=== PATIENT | male | born 1990 | race Caucasian/White ===

== ENCOUNTER → 2019-05-03 | Outpatient (CLI) | payer OTHER ==
--- NOTE | 2019-05-03 15:13 | Diagnostic Imaging Report ---
INDICATION: Left shoulder pain. TIME OF EXAM: 02:30 p.m. FINDINGS: Three views of the left shoulder were obtained. Glenohumeral and acromioclavicular alignment is normal. Acromiohumeral space is normal. No fracture or dislocation is seen. IMPRESSION: No acute bony abnormality is detected. Dictated by: Dictated on workstation # [id number]
== END ==
LOC: RAD FS 14:18
PROVIDERS: ATTEND Nurse Practitioner
DX: M25.512 Pain in left shoulder (principal)
CPT/HCPCS: 73030

== ENCOUNTER 2019-09-29 11:59 | Emergency (ER) | payer OTHER ==
[~2019-09-29] VITALS: Ht 177.8 cm; Wt 90.9 kg
[2019-09-29] MEDS ORDERED: predniSONE 20 MG TAB ONE (12:27)
[2019-09-29] MEDS ORDERED: RT-ALBUTEROL/IPRATROPIUM 3 ML (DUONEB) VIAL ONE (12:27)
--- NOTE | 2019-09-29 12:39 | NUR ---
prednisone was not available in 10mg tabs. Pt was given 3 20mg tablets.
[2019-09-29] MEDS ORDERED: RT-ALBUINH IH (12:40)
[2019-09-29] MEDS ORDERED: PRD20T PO (12:40)
--- NOTE | 2019-09-29 12:41 | ED Respiratory ---
General Chief Complaint: Cough/Cold/Flu Symptoms Stated Complaint: COUGH Nursing Triage Note: Patient arrived by private vehicle with chief complaint of fever, cough, chills (flu like symptoms). Pt was sent over from health department to possibly get tested to coronavirus. Pt was seen at Dr. Ivey's office this morning, then was sent to health department and then here by private vehicle. Pt is alert, oriented x 4 and ambulatory. Pt was ambulatory to room 3. Pt stated he has traveled to [facility] last Thursday and Thursday. He was in [place] 3 weeks ago. Pt started having fever, cough, chills on Thursday. Pt stated he is in good shape and is still having a difficulty breathing. Pt stated that he only has pain when breathing (taking a deep breath). Pt stated he has shortness of breath all the time since Thursday. Has not taken anything for fever today. It has been since Thursday that the patient has had vomiting. Source: patient Exam Limitations: no limitations History of Present Illness Date Seen by Provider: Sep 29, 2019 Time Seen by Provider: 12:35 Initial Comments Patient presents by private vehicle after initially going to his PCP this morning who sent him to the health department which then sent him to the emergency room. Patient has had cough and cold symptoms for the past several days with his last fever began yesterday, he states at 100. No fever today, no chills. Describes some chest tightness and wheezing with cough. No known exposure to the coronavirus and no travel outside the country. Patient states that he has traveled to [facility] recently. Allergies and Home Medications Allergies Coded Allergies: No Known Drug Allergies (Unverified , 09/29/19) Home Medications Albuterol Sulfate 1 Puff Puff, 2 PUFF IH Q4H 1 PUFF = 90 MCG Prescribed by: RODRIGUEZ GO on 09/29/19 1240 Prednisone 20 Mg Tab, 40 MG PO DAILY Prescribed by: RODRIGUEZ GO on 09/29/19 1240 Patient Home Medication List Home Medication List Reviewed: Yes Review of Systems Review of Systems Constitutional: see HPI, fever, malaise Respiratory: cough, wheezing Cardiovascular: chest pain (tightness w cough); No palpitations, No syncope Gastrointestinal: No abdominal pain, No loss of appetite, No vomiting Musculoskeletal: No back pain, No joint pain; muscle pain Skin: No change in color, No rash Past Zbgwata-Shzdzr-Xlwgxq Hx Past Med/Social Hx: Reviewed Nursing Past Med/Soc Hx Patient Social History Alcohol Use: Denies Use Recreational Drug Use: No Smoking Status: Current Everyday Smoker Type Used: Smokeless Tobacco 2nd Hand Smoke Exposure: Yes Recent Foreign Travel: No Contact w/Someone Who Travel: No (No idea) Recent Hopitalizations: No Physical Abuse: No Sexual Abuse: No Mistreated: No Fear: No Seasonal Allergies Seasonal Allergies: No Past Medical History Surgeries: Yes Vasectomy Respiratory: No Cardiac: No Neurological: No Genitourinary: No Gastrointestinal: No Musculoskeletal: No Endocrine: No HEENT: No Cancer: No Psychosocial: Yes Anxiety, Depression Integumentary: No Blood Disorders: No Physical Exam Vital Signs - First Documented 09/29/19 09/29/19 12:05 12:54 Temp 37.0 Pulse 82 Resp 16 B/P (MAP) 128/75 (92) Pulse Ox 96 O2 Delivery Room Air Capillary Refill : Less Than 3 Seconds Height: '" Weight: lbs. oz. kg; 28.00 BMI Method: General Appearance: WD/WN, no apparent distress HEENT: normal ENT inspection, TMs normal Neck: non-tender, supple Respiratory: chest non-tender, lungs clear, normal breath sounds, no respiratory distress, no accessory muscle use Cardiovascular: regular rate, rhythm, no edema Gastrointestinal: non tender, soft Skin: normal color, warm/dry Progress/Results/Core Measures Suspected Sepsis Recent Fever Within 48 Hours: Yes Infection Criteria Present: Suspected New Infection New/Unexplained Altered Menta: No Sepsis Screen: No Definite Risk SIRS Temperature: Pulse: 82 Respiratory Rate: Blood Pressure 128 /75 Mean: 92 Results/Orders Micro Results Microbiology 09/29/19 Influenza Types A,B Antigen (INGE) - Final, Complete My Orders Orders - RODRIGUEZ GO DO Influenza A And B Antigens (09/29/19 12:09) Prednisone Tablet (Deltasone Tablet) (09/29/19 12:27) Albuterol/Ipra Inhalation Soln (Duoneb I (09/29/19 12:27) Albuterol/Ipra Inhalation Soln (Duoneb I (09/29/19 12:45) Svn Small Volume Nebulizer (09/29/19 12:36) Prednisone Tablet (Deltasone Tablet) (09/29/19 12:45) Medications Given in ED Current Medications Medications Dose Ordered Sig/Edwige Route Start Time Stop Time Status Last Admin Dose Admin Albuterol/ Ipratropium 3 ml ONCE ONCE INH 09/29/19 12:45 09/29/19 12:46 DC 09/29/19 12:38 3 ML Prednisone 60 mg ONCE ONCE PO 09/29/19 12:45 09/29/19 12:46 DC 09/29/19 12:39 60 MG Vital Signs/I&O 09/29/19 09/29/19 09/29/19 09/29/19 12:05 12:05 12:28 12:54 Temp 37.0 36.8 Pulse 82 87 Resp 16 B/P (MAP) 128/75 (92) 126/72 Pulse Ox 96 87 O2 Delivery Room Air Room Air Room Air Room Air Capillary Refill : Less Than 3 Seconds Blood Pressure Mean: 92 Departure Impression Primary Impression: Bronchitis Disposition: HOME, SELF-CARE Condition: Stable Departure-Patient Inst. Referrals: MARK IVEY MD (PCP/Family) Primary Care Physician Patient Instructions: Acute Bronchitis, Adult (DC) Scripts Albuterol Sulfate (PROAIR HFA) 1 Puff Puff 2 PUFF IH Q4H, #1 PUFF 1 PUFF = 90 MCG Prov: RODRIGUEZ GO DO 09/29/19 Prednisone (Prednisone) 20 Mg Tab 40 MG PO DAILY, #10 TAB 0 Refills Prov: RODRIGUEZ GO DO 09/29/19 RODRIGUEZ GO DO Sep 29, 2019 12:41
[2019-09-29] MEDS ORDERED: RT-ALBUTEROL/IPRATROPIUM 3 ML (DUONEB) VIAL INH ONE (12:45)
[2019-09-29] MEDS ORDERED: predniSONE 10 MG TAB PO ONE (12:45)
[2019-09-29 12:54] VITALS: BP 126/72
--- OUTSIDE RECORDS SUMMARY | 2019-10-01 10:24 | XMS REPORT | Continuity of Care Document ---
Author Organization Unknown Address Unknown Phone Unavailable Allergies Active Description Code Type Severity Reaction Onset Reported/Identified Relationship to Patient Clinical Status Yes No Known Drug Allergies [id number] Drug Allergy Unknown N/A 09/29/2019 Medications There is no data. Problems Date Dx Coded Attending Type Code Diagnosis Diagnosed By 09/29/2019 ANURAG BUTTERFIELD Ot M25.512 PAIN IN LEFT SHOULDER Procedures There is no data. Results Test Result Range Influenza virus A and B antigen detectio n - 09/29/19 12:04 FLU RESULT NEGATIVE FOR INFLUENZA A AND B ANTIGENS BY IA NRG Encounters ACCT No. Visit Date/Time Discharge Status Pt. Type Provider Facility Loc./Unit Complaint [id number] 09/29/2019 10:30:00 ACT Outpatient [facility] [id number] 09/29/2019 11:59:00 020 12:54:00 DIS Emergency RODRIGUEZ GO DO [facility] ER FS COUGH [id number] 05/03/2019 14:18:00 019 23:59:59 CLS Outpatient ANURAG BUTTERFIELD [facility] RAD FS M25.512 [id number] 09/29/2019 10:59:[address] Outpatient SELF MARK HUDSON [facility] RAD FS VIRAL ILLNESS
== END 2019-09-29 12:54 | disposition home or self-care (01) ==
LOC: EDUNIT# 11:59 → ER FS 11:59
DX: J40 Bronchitis, not specified as acute or chronic (principal); F17.290 Nicotine dependence, other tobacco product, uncomplicated
CPT/HCPCS: 87804; 94640

== ENCOUNTER → 2019-09-29 | Outpatient (CLI) | payer OTHER ==
[~2019-09-29] MED LIST: PRD20T PO; RT-ALBUINH IH
--- NOTE | 2019-09-29 14:11 | Diagnostic Imaging Report ---
EXAMINATION: Chest 2 view HISTORY: Flulike symptoms. COMPARISON: None available. FINDINGS: The lung volumes are normal. No focal consolidation is seen. No large pleural effusion or pneumothorax is seen. The cardiomediastinal silhouette is normal in size and contour. No acute osseous abnormality is seen. IMPRESSION: 1. No acute pleuroparenchymal process. Dictated by: Dictated on workstation # [id number]
== END ==
LOC: RAD FS 10:59
PROVIDERS: ATTEND Family Medicine
DX: B34.9 Viral infection, unspecified (principal)
CPT/HCPCS: 71046

== ENCOUNTER → 2021-06-28 | Outpatient (CLI) | payer OTHER ==
--- NOTE | 2021-06-28 16:08 | Diagnostic Imaging Report ---
INDICATION: Left elbow pain COMPARISON: None. FINDINGS: 3 views of the left elbow show no fractures, dislocations, or other acute bony abnormalities identified. Joint spaces are well maintained throughout. The soft tissues appear unremarkable. No radiopaque foreign bodies are identified. IMPRESSION: No acute fractures or dislocations of the left elbow. Dictated by: Dictated on workstation # [id number]
== END ==
LOC: RAD FS 15:17
PROVIDERS: ATTEND Nurse Practitioner Family
DX: M25.522 Pain in left elbow (principal)
CPT/HCPCS: 73080